=== PATIENT | male | born 2000 | race Two or more races ===

== ENCOUNTER 2022-05-05 10:20 | Emergency (ER) | payer MEDICAID ==
[~2022-05-05] VITALS: Ht 170.2 cm; Wt 57.5 kg
[2022-05-05 12:56] VITALS: BP 131/78
[2022-05-05] MEDS ORDERED: PRED20TA2 PO (13:32)
[2022-05-05] MEDS ORDERED: AMOX-277 PO (13:32)
== END 2022-05-05 13:54 | disposition home or self-care (01) ==
LOC: ER 10:20
DX: J02.9 Acute pharyngitis, unspecified (principal); F41.9 Anxiety disorder, unspecified; F12.10 Cannabis abuse, uncomplicated; J45.909 Unspecified asthma, uncomplicated; Z79.2 Long term (current) use of antibiotics; Z79.899 Other long term (current) drug therapy
CPT/HCPCS: 93005

== ENCOUNTER 2024-02-08 12:34 | Emergency (ER) | payer MEDICAID ==
[~2024-02-08] VITALS: Ht 167.6 cm; Wt 61.0 kg
[~2024-02-08 12:34] MED LIST: AMOX875T4 PO; PRED20TA2 PO
[2024-02-08 12:45] VITALS: BP 126/77; PULSE 71; RESP 16; TEMP 98.9; O2SAT 97
[2024-02-08 14:09] LABS: Basophils # (auto) 0 10 ^3/uL (0-0.2); Basophils % (auto) 0.7 % (0.0-2.0); Eosinophils # (auto) 0.1 10 ^3/uL (0-0.8); Eosinophils % (auto) 2.6 % (0.0-7.0); Hematocrit 39.4 % (41.0-53.0); Hemoglobin 13.3 g/dL (13.5-17.5); Lymphocytes % (auto) 40.2 % (10.0-50.0); Mean Corpuscular Hemoglobin 30.2 pg (28.0-32.0); Mean Corpuscular Hgb Conc. 33.7 g/dL (32.0-36.0); Mean Corpuscular Volume 89.4 fL (80.0-100.0); Monocytes # (auto) 0.5 10 ^3/uL (0-1.3); Monocytes % (auto) 10.3 % (0.0-12.0); Neutrophils # (auto) 2.3 10 ^3/uL (1.6-8.6); Neutrophils % (auto) 46.2 % (37.0-80.0); Red Blood Cells 4.41 10^6/uL (4.5-5.90); Red Cell Distribution Width 12.9 % (11.8-14.3)
[2024-02-08 14:13] LABS: Chloride 108 mmol/L (98-107); Potassium 4.1 mmol/L (3.5-5.1); Sodium 140 mmol/L (136-145)
[2024-02-08 14:14] LABS: Anion Gap 3 (5-15); Carbon Dioxide 29 mmol/L (20-30)
[2024-02-08 14:15] LABS: Calcium 9.8 mg/dL (8.5-10.1)
[2024-02-08 14:19] LABS: Glucose 89 mg/dL (74-106)
[2024-02-08 14:20] LABS: BUN/Creatinine Ratio 9.6 (10.0-20.0); Blood Urea Nitrogen 9 mg/dL (9-23)
[2024-02-08] MEDS ORDERED: ACET-1079 PO (14:25)
[2024-02-08] MEDS ORDERED: AUG875T PO (14:25)
[2024-02-08] MEDS ORDERED: METH4PAK PO (14:25)
== END 2024-02-08 14:25 | disposition home or self-care (01) ==
LOC: ER 12:34
DX: J40 Bronchitis, not specified as acute or chronic (principal); R51.9 Headache, unspecified; J06.9 Acute upper respiratory infection, unspecified
CPT/HCPCS: 36415; 71046; 80048; 85025; 86703

== ENCOUNTER 2024-04-11 08:05 | Emergency (ER) | payer MEDICAID ==
[~2024-04-11] VITALS: Ht 167.6 cm; Wt 57.3 kg
[~2024-04-11 08:05] MED LIST changes: +ACET-1079 PO; +AUG875T PO; +METH4PAK PO
[2024-04-11] MEDS: FLUORESCEIN SOD OPTH TEST STRIP LEFTEYE ONE (08:45)
[2024-04-11] MEDS ORDERED: FLUORESCEIN SOD OPTH TEST STRIP ONE (08:45)
[2024-04-11] MEDS: TETRACAINE HCL 0.5% OPTH(EYE) SOLN 4ML EACHEYE ONE (08:45)
[2024-04-11 08:47] VITALS: BP 150/70; TEMP 98.7
[2024-04-11 08:48] VITALS: PULSE 60; RESP 16; O2SAT 98
== END 2024-04-11 09:13 | disposition home or self-care (01) ==
LOC: ER 08:10
DX: S05.52XA Penetrating wound with foreign body of left eyeball, initial encounter (principal); F41.9 Anxiety disorder, unspecified; J45.909 Unspecified asthma, uncomplicated; Z88.8 Allergy status to other drugs, medicaments and biological substances; Z79.899 Other long term (current) drug therapy; X58.XXXA Exposure to other specified factors, initial encounter; Y93.89 Activity, other specified; Y92.89 Other specified places as the place of occurrence of the external cause; Y99.8 Other external cause status

== ENCOUNTER 2024-05-02 02:15 | Emergency (ER) | payer MEDICAID ==
[~2024-05-02] VITALS: Ht 170.2 cm; Wt 58.6 kg
[2024-05-02 02:25] VITALS: BP 124/71; PULSE 61; RESP 16; O2SAT 96
== END 2024-05-02 06:16 | disposition home or self-care (01) ==
LOC: ER 02:15
DX: R07.0 Pain in throat (principal); F41.9 Anxiety disorder, unspecified; J45.909 Unspecified asthma, uncomplicated; Z88.8 Allergy status to other drugs, medicaments and biological substances; Z79.899 Other long term (current) drug therapy
CPT/HCPCS: 70360; 71045

== ENCOUNTER 2024-09-14 17:27 | Emergency (ER) | payer MEDICAID ==
[~2024-09-14] VITALS: Ht 170.2 cm; Wt 59.8 kg
[2024-09-14] MEDS ORDERED: ACET500T58 PO (19:13)
--- NOTE | 2024-09-14 19:13 | ED.PDOC ---
History of Present Illness HPI Comments 23 year old male presents to ER with complaints of cough x 2 days. Patient states he has been experiencing dry cough, congestion, fatigue and intermittent frontal headache x 2 days. Reports he has been taking Tylenol for his symptoms without relief. He rates his current pain a 10/10. Patient presents to ER am bulatory on arrival, alert and oriented x4, with steady gait, in no distress. Denies fever, n/v, dizziness, shortness of breath, chest pain, abdominal pain or any further symptoms/complaints Chief Complaint: Flu like Time Seen by MD: 18:07 Primary Care Provider: UNKNOWN Reviewed Notes: Nurses Notes, Medications, Allergies Information Source: Patient Mode of Arrival: Ambulatory Past Medical History PAST MEDICAL HISTORY: Anxiety, Asthma Surgical History: Denies all surgeries Family History Family History: Unknown Social History Smoker: Non-Smoker Alcohol: Denies ETOH Use Drugs: Denies Drug Use Lives In: Home Constitutional: See HPI EENTM: See HPI Respiratory: See HPI Cardiovascular: No Symptoms Reported Gastrointestinal: No Symptoms Reported Genitourinary: No Symptoms Reported Neurological: See HPI Musculoskeletal: No Symptoms Reported Integumentary: No Symptoms Reported Allergic/Immunocompromised: others (DENIES) Hematologic/Lymphatic: No Symptoms Reported Endocrine: No Symptoms Reported Psychiatric: No symptoms Reported Physical Exam General Appearance: No Apparent Distress HEENT: Normal ENT Inspection, PERRL/EOMI, Pharynx Normal, TMs Normal Neck: Full Range of Motion, Non-Tender, Normal Respiratory: Chest Non-Tender, Lungs Clear, No Accessory Muscle Use, No Respiratory Distress, Normal Breath Sounds Cardiovascular: No Murmur, No Gallop, Regular Rate/Rhythm Breast Exam: Deferred Gastrointestinal: NOT DONE Genitalia: Deferred Pelvic: Deferred Rectal: Deferred Extremities: Normal capillary refill, Normal range of motion Neurologic: Alert, experimental outboard motors mechanic II-XII nml as Tested, No Motor Deficits, Normal Affect, Normal Mood, No Sensory Deficits Cerebellar Function: Normal Reflexes: Normal Skin: Dry, Normal Color, Warm Peripheral Pulses: 2+ Radial (R), 2+ Radial (L), 2+ Brachial (R), 2+ Brachial (L) Lymphatic: No Adenopathy Was a procedure done? Was a procedure done?: No Sedation Sedation?: No Fever Differential Dx Differential Diagnosis: Pneumonia, Sepsis, Pharyngitis X-Ray, Labs, Meds, VS Vital Signs Date Time Temp Pulse Resp B/P (MAP) Pulse Ox O2 Delivery O2 Flow Rate FiO2 09/14/24 18:26 98.7 92 16 124/50 (74) 96 98.7 09/14/24 18:26 92 16 96 Room Air 09/14/24 17:37 98.7 92 16 124/50 (74) 96 Lab Test 09/14/24 18:58 Range/Units Influenza Type A Antigen Positive Negative Influenza Type B Antigen Negative Negative Current Medications Medications (Trade) Dose Ordered Sig/[place] Route Start Time Stop Time Status Last Admin Acetaminophen (Tylenol Tablet) 650 mg ONCE ONCE PO 09/14/24 19:15 09/14/24 19:16 DC 09/14/24 19:22 TYLENOL 650 MG P.O. ORDERED PATIENT TOLERATING P.O. INTAKE WELL AND IN NO DISTRESS DURING ER VISIT/PRIOR TO DISCHARGE ADVISED TO DRINK PLENTY OF FLUIDS ADVISED TO FOLLOW UP WITH PCP IN 1-2 DAYS PATIENT VERBALIZED UNDERSTANDING AND AGREEABLE WITH CURRENT PLAN OF CARE ADVISED TO RETURN TO ER IMMEDIATELY IF SYMPTOMS WORSEN Time of 1ST Reevaluation: 18:54 Reevaluation 1ST: N/A Patient Education/Counseling: Diagnosis, Treatment, Prognosis, Need For Follow Up Family Education/Counseling: No Family Present Departure 1 Departure Time of Disposition: 19:10 Impression: Primary Impression: Influenza A Disposition: 01 HOME / SELF CARE / HOMELESS Condition: Stable e-Prescriptions Oseltamivir Phosphate (Tamiflu) 75 Mg Cap 1 CAP PO BID for 5 Days, #10 CAP 0 Refills Prov: JULIANNE LYONS 09/14/24 Acetaminophen (Acetaminophen) 500 Mg Tab 500 MG PO Q4HPRN, #30 TAB 0 Refills Prov: JULIANNE LYONS 09/14/24 Prednisone (Prednisone) 20 Mg Tab 20 MG PO BID for 5 Days, #10 TAB 0 Refills Prov: JULIANNE LYONS 09/14/24 Discharged With: Self Critical Care Note Critical Care Time?: No Stability Stability form required: No Heart Score Heart Score: Heart Score Response (Comments) Value History N/A 0 EKG N/A 0 Age N/A 0 Risk Factors N/A 0 Troponin N/A 0 Total 0 JULIANNE LYONS Sep 14, 2024 19:13
[2024-09-14] MEDS: ACETAMINOPHEN 325 MG TAB PO ONE (19:22)
[2024-09-14 19:34] LABS: Rapid Influenza B Negative (Negative)
[2024-09-14 19:38] LABS: Rapid Influenza A Positive (Negative)
[2024-09-14] MEDS ORDERED: OSEL75CA5 PO (19:43)
[2024-09-14 20:07] VITALS: BP 121/67; PULSE 78; RESP 16; TEMP 98.6; O2SAT 98
== END 2024-09-14 20:09 | disposition home or self-care (01) ==
LOC: ER 17:27
DX: J10.1 Influenza due to other identified influenza virus with other respiratory manifestations (principal); J45.909 Unspecified asthma, uncomplicated; F41.9 Anxiety disorder, unspecified
CPT/HCPCS: 87804